=== PATIENT | male | born 2005 | race Caucasian/White ===

== ENCOUNTER 2025-03-03 13:09 | Outpatient (AMB) | payer OTHER, SELFPAY ==
--- NOTE | 2025-03-03 13:13 | MHC.PC.OV ---
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: No Accompanied by: Self / Same As Patient Allergies peanut (PEANUT) Allergy (Unknown, Unverified 03/03/25 13:33) ANAPHYLAXIS Sulfa (Sulfonamide Antibiotics) (SULFA (SULFONAMIDE ANTIBIOTICS)) Allergy (Unknown, Unverified 03/03/25 13:33) RASH tree nut (TREE NUT) Allergy (Unknown, Unverified 03/03/25 13:33) ANAPHYLAXIS sulfa Allergy (Mild, Uncoded 03/03/25 13:33) Unknown Medication List - Last Reconciled 03/03/25 by DEYSI Brody albuterol sulfate 90 mcg/actuation 2 puffs inhalation Q4H PRN epinephrine 0.3 mg (0.3 mL) IM Q10M PRN montelukast (Singulair) 10 mg PO BEDTIME Tobacco use date assessed: 03/03/25 Dental Screening Dental Screen Date: 03/03/25 Did you have a dental visit in the last 12 months?: Yes Did you have a dental problem in the last 6 months where you did not have access to dental care?: No Was dental information given to patient?: No HPI HPI Comments History of Present Illness Details 19-year-old male with history of mild intermittent asthma presenting to the office today for management of chronic conditions and to establish care. 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 Looking to transfer to a 4 year college. He does tell me that he drinks about 6 beers on Saturday and Saturday night but otherwise consumes no alcohol. Reports smoking cigarettes and marijuana about once monthly. Otherwise no drug use 6 beers fri sat. Asthma- previously using Flovent/Pulmicort but has been out of this for some time. Does use Singulair. Reports needing his albuterol inhaler only as needed about every 3-4 weeks. Has never had an exacerbation requiring prednisone or any hospitalizations. He reports he does experience flares with allergies as well as heavy exertion. Allergic rhinitis- uses fexofenadine Allergy to peanuts and tree nuts- has epipen has never needed to use. Concerns: None Health maintenance: Colonoscopies to started age 43 ROS: General: No fevers, malaise, unintentional weight loss HEENT: No blurred vision, diplopia. No sore throat, nasal congestion, rhinorrhea, sinus pain, ear pain Cardiovascular: No chest pain, palpitations, or leg edema Respiratory: No shortness of breath, wheezing, cough GI: No abdominal pain, nausea, vomiting, diarrhea, constipation, melena, hematochezia : No dysuria, hematuria, increased urinary frequency, decreased urinary output MSK: No myalgia, back pain Neuro: No headaches, weakness, paresthesias Skin: No rashes or lesions EXAM: Constitutional - Awake and Alert, No apparent distress Eyes - PERRL Cardiovascular - S1S2, RRR, No edema Respiratory - Normal lung expansion, Normal respiratory effort, No respiratory distress, CTA bilaterally Extremities - no calf tenderness bilaterally, no swelling Skin - Warm/Dry Neurological - Alert & oriented x3 Psychological - Appropriate affect [facility] Medical History (Updated 03/03/25 @ 13:39 by DEYSI Brody) Alcohol consumption binge drinking Tree nut allergy Peanut allergy Allergic rhinitis Asthma Surgical History (Updated 03/03/25 @ 13:24 by DEYSI Brody) No pertinent past surgical history Family History (Updated 03/03/25 @ 13:24 by DEYSI Brody) Paternal Grandfather Prostate cancer Paternal Grandmother Alzheimer dementia Maternal Grandmother Alzheimer dementia Social History Housing: Apartment Patient Tobacco Use Status: Current someday Tobacco user (occasionally) e-Cigarette/Vaping Use: Currently Using (occasionally) service: No Current occupational status: employed Cognitive needs: No Hearing needs: No Vision needs: No Physical exam (Primary Care) Tobacco/Smoking Status: Tobacco use Status Tobacco use date assessed 03/03/25 03/03/25 13:35 Patient Tobacco Use Status Current someday Tobacco ( 03/03/25 13:35 occasionally) e-Cigarette/Vaping Use Currently Using ( 03/03/25 13:35 occasionally) Coding Level of Care Code New Pt Level 3 (92122) Diagnoses Asthma J45.909 Allergic rhinitis J30.9 Alcohol consumption binge drinking F10.10 Assessment & Plan Assessment & Plan (1) Asthma: Code(s): J45.909 - Unspecified asthma, uncomplicated Category: Medical Plan: Stable. Can remain off of maintenance inhaler. Continue Singulair as well as albuterol inhaler on a as needed for shortness breath and wheezing (2) Allergic rhinitis: Code(s): J30.9 - Allergic rhinitis, unspecified Category: Medical Plan: Continue fexofenadine. Can also use inhaled corticosteroid as needed. Avoid triggers (3) Alcohol consumption binge drinking: Code(s): F10.10 - Alcohol abuse, uncomplicated Category: Social Hx Plan: Counseled on healthy alcohol use. Also consult against smoking or vaping any substances. Plan Follow-up for annual physical exam. Labs ordered Orders: Orders Basic Metabolic Panel Today F10.10 - Alcohol abuse, uncomplicated, J30.9 - Allergic rhinitis, unspecified, J45.909 - Unspecified asthma, uncomplicated, Z13.220 - Encounter for screening for lipoid disorders Liver Panel Today F10.10 - Alcohol abuse, uncomplicated, J30.9 - Allergic rhinitis, unspecified, J45.909 - Unspecified asthma, uncomplicated, Z13.220 - Encounter for screening for lipoid disorders Lipid Panel Today F10.10 - Alcohol abuse, uncomplicated, J30.9 - Allergic rhinitis, unspecified, J45.909 - Unspecified asthma, uncomplicated, Z13.220 - Encounter for screening for lipoid disorders Medications: New albuterol sulfate 90 mcg/actuation 2 puffs inhalation Q4H PRN 8.5 grams 1RF shortness of breath or wheezing montelukast (Singulair) 10 mg PO BEDTIME 90 tabs 1RF epinephrine for 2 doses 0.3 mg (0.3 mL) IM Q10M PRN 2 ea 1RF anaphylaxis Z91.010 - Allergy to peanuts
[2025-03-03 13:34] VITALS: BP 120/80; PULSE 50; RESP 14; TEMP 36.6; O2SAT 98; BMI 25.3
--- OUTSIDE RECORDS SUMMARY | 2025-03-03 13:49 | XMS_ITS | Clinical Summary ---
Author Organization [facility] Address [address] [place] [id number] Phone Care Team Providers Care Ambulatory Care Nurse Name Role Phone Unavailable Primary Care Provider Unavailabl e Allergies Active Allergy Reactions Criticality Noted Date Comments Peanuts (Food) High 06/14/2017 Sulfa Antibiotics 06/14/2017 Tree Nuts (Food) High 06/14/2017 Medications fluocinonide 0.05 % cream FLUOCINONIDE; apply by topical route 2 times every day to the affected area(s); 0.05 %; 06/07/2016; Active 6 Active albuterol HFA (ProAir HFA) 108 (90 Base) MCG/ACT inhalerIndication s:Mild persistent asthma without complication Inhale 2 puffs every 4 (four) hours as needed for wheezing. 1 Units 2 Active fexofenadine 180 MG tabletIndications :Seasonal allergic rhinitis due to pollen Take 1 tablet (180 mg total) by mouth daily. 90 tablet 2 3 Active EPINEPHrine (EpiPen 2-Sravan) 0.3 MG/0.3ML injection syringeIndication s:Nut allergy 1 syringe Once prn anaphylaxis; go to ER if used 2 each 2 3 Active montelukast 10 MG tabletIndications :Mild persistent asthma without complication TAKE 1 TABLET BY MOUTH EVERY DAY AT NIGHT 90 tablet 1 3 Active albuterol HFA 108 (90 Base) MCG/ACT inhalerIndication s:Mild persistent asthma without complication INHALE 2 PUFFS BY MOUTH EVERY 4 HOURS NEEDED FOR WHEEZING OR SHORTNESS OF BREATH 18 g 3 Active budesonide (Pulmicort Flexhaler) 180 MCG/ACT inhalerIndication s:Moderate persistent asthma without complication Inhale 1 puff 2 (two) times a day. Rinse mouth with water after use, do not swallow. 1 each 5 3 Active Active Problems Problem Noted Date Diagnosed Date COVID-19 vaccine dose declined 01/18/2023 Assessment & Plan (01/18/2023 11:48 AM EDT): Counseled to get vaccinated to prevent serious illness Marijuana use 01/18/2023 Overview (01/18/2023): Was daily, has cut back Assessment & Plan (01/18/2023 5:04 PM EDT): Counseled re marijuana risks, cutting back, has on own. 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 Use only foam pillows 3. Wash all bed linens, including bedspread, weekly 4. Avoid floor to ceiling heavy curtains. 5. Wash any curtains or blinds there 6. Try to avoid wall to wall carpeting 7. Vacuum your home weekly with a HEPA filter 8. No cats, or dogs in the room. Best to Have no cats at all in the home ): 9. Use clean air conditioners; for whole house Ac, make sure ducts are clean 10. Consider air purifiers (Emily makes Good reasonably priced models) 11. Have child wash hands and face a lot 12. Baking soda compresses work great on Itchy eyes. Assessment & Plan (10/14/2021 3:43 PM EDT): Continue present meds. 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 , and Sulfa meds; has Epi Pens, with oils, gets rash, never eats them. Assessment & Plan (01/18/2023 5:02 PM EDT): Epi pen refilled. Allergy plan discussed Assessment & Plan (09/22/2021 2:31 PM EDT): Has epi pen Assessment & Plan (09/19/2020 10:38 AM EDT): Refilled epi-pen Recommend follow up with clinical administrator Assessment & Plan (06/18/2019 2:36 PM EST): Needs refill on Epi-pen No longer seeing clinical administrator Discussed seeing clinical administrator for desens to peanuts Moderate persistent asthma without complication 09/07/2011 Overview (10/13/2021): Started Aug 2011; uses flovent 110 daily all year with increase when ill; may use less in summer, also on Singulair 10 mg Asthma not in good control (09/26) wheezing today, needs to get in control to sign [employer] sports form, needs to start taking flovent again. 10/27: now doing well. Assessment & Plan (10/14/2021 3:43 PM EDT): Continue present asthma plan. Call with problems. Signed sports form Assessment & Plan (09/23/2021 5:09 PM EDT): Counseled, asthma discussed Assessment & Plan (09/19/2020 10:38 AM EDT): No longer on flovent Uses singulair nightly Uses albuterol occas with sport - refilled today Assessment & Plan (06/18/2019 2:39 PM EST): Singulair 10 mg Use flovent off & on, just restarted ([facility]) due to increase albuterol need Assessment & Plan (06/17/2018 2:04 PM EST): Pretty good compliance with Flovent. Most recent flair was last week. Triggers are cold, URI, allergens. Intrinsic eczema 11/15/2009 Overview (06/14/2017): Rare; uses creams Assessment & Plan (01/18/2023 11:31 AM EDT): Use fluocinonide. Assessment & Plan (09/23/2021 5:09 PM EDT): Ok today Assessment & Plan (09/19/2020 9:34 AM EDT): No issues No meds Seasonal allergic rhinitis due to pollen 010 Overview (09/23/2021): Uses claritin prn; used to see clinical administrator 09/26 not in good control. Assessment & Plan (10/13/2021 3:26 PM EDT): Try stopping claritin, continuing singulair and zachariah. In the summer, try stopping the flonase, and singulair but restart if You have symptoms. Assessment & Plan (09/22/2021 2:43 PM EDT): I would switch to zyrtec in the am, stop loratidine, take zachariah at night. Keep his/her bedroom dust free: 1. Wash and dry any stuffed animals or Give them a vacation in sealed plastic bags for a week 2. Use only foam pillows 3. Wash all bed linens, including bedspread, weekly 4. Avoid floor to ceiling heavy curtains. 5. Wash any curtains or blinds there 6. Try to avoid wall to wall carpeting 7. Vacuum your home weekly with a HEPA filter 8. No cats, or dogs in the room. Best to Have no cats at all in the home ): 9. Use clean air conditioners; for whole house Ac, make sure ducts are clean 10. Consider air purifiers (Emily makes Good reasonably priced models) 11. Have child wash hands and face a lot 12. Baking soda compresses work great on Itchy eyes. Assessment & Plan (12/09/2020 6:25 PM EDT): 12/09/2020 (age 15yr 7mo): significant increase in nasal congestion with maxillary tenderness and green nasal discharge. - continue with the allergy care recommended by Dr. Garnett at the last visit - resume the usual care of pseudphed and tylenol that usually works for these episodes. - could try using a neti pot. If Giorgio's symptoms do not seem to improve, I would be glad to call in antibiotics in 2 days when I'm in the office. I would consider augmentin. Assessment & Plan (09/19/2020 10:38 AM EDT): claritin prn Singulair nightly recommend adding flonase daily Recommend following up with clinical administrator Assessment & Plan (06/18/2019 2:35 PM EST): claritin & singulair daily Recommend trying flonase for nasal congestion Resolved Problems Problem Noted Date Diagnosed Date Resolved Date Sprain of calcaneofibular li gament of right ankle 09/22/2021 10/13/2021 Assessment & Plan (10/13/2021 3:26 PM EDT): Better now. Refused influenza vaccine 06/18/2019 Overview (06/18/2019): Declined 06/18/19 Assessment & Plan (06/18/2019 2:35 PM EST): Discussed & info given on how serious a flu season can be. Influenza can cause serious illness in children. Every year Influenza results in significant numbers of hospitalizations & deaths in the community. Immunizing children not only protects them but also the larger community since children often spread the influenza within a community. Family and /or patient still refused vaccine today Family will return for nurse visit if wishing vaccine Immunizations Immunization Administration Dates Next Due DTaP 5 09/10/2007, 5,2003,09/14,2003 Hep A, ped/adol 06/14/2017,06/07/2016 Hep B, ped/adol 02/18/2004,2003,2003 Hib (HbOC) 08/14/2004 Hib (PRP-T) 2003,2003,2003 IPV 09/10/2007, 4,2003,07/13 Influenza, injectable, quadr ivalent, preservative free 06/29/2020 MMR 05/12/2004 MMRV 09/10/2007 Meningococcal Conj (Menactra) MCV4P 06/18/2019,1 07/19/2014 Pneumococcal Conjugate 08/14/2004,2003,2003,07/13 Tdap 05/19/2015 Varicella 05/12/2004 Family History Medical History Relation Name Comments Asthma Brother Asthma Father Giorgi No Known Problems Mother Carol Heart attack Paternal Grandfather Relation Name Status Comments Brother Father Giorgi Mother Carol Alive Paternal Grandfather Social History Tobacco Use Types Packs/Day Years Used Date Smoking Tobacco: Never Smokeless Tobacco: Never Comments:Never smoker Alcohol Use Standard Drinks/Week Comments Yes 0 (1 standard drink = 0.6 oz pure alcohol) 3-5 beers or cider at a sitting, twice a month Hunger/Food Answer Date Recorded In the last 12 months, did y ou or your family ever eat less than you felt you should because there wasn't enough money for food? No 01/18/2023 Stable Housing Answer Date Recorded Are you worried that in the next 2 months you may not have stable housing? No 01/18/2023 Transportation Concerns Answer Date Rec orded In the last 12 months, have you or your family ever had to go without healthcare because you didn't have a way to get there? No 01/18/2023 Hazards in Home Answer Date Recorded Think about the place you li ve. Do you have problems with any of the following? Pests (mice or roaches), mold, no/not working smoke detectors, water leaks, no window guards. No 2022 Financing Utilities Answer Date Recorde d In the last 12 months, has t he electric, gas, oil, or water company threatened to shut off your services in your home? No 01/18/2023 Safety at Home Answer Date Recorded Are you or your family worried about feeling saf e in your home? No 01/18/2023 Outside Support Answer Date Recorded Do you feel that you need mo re support from other people or programs to help you care for yourself or your family? No 01/18/2023 Understanding Health Concerns Answer Da te Recorded Do you need help understandi ng your or your child's healthcare needs (diagnosis, medications, plan, etc.)? No 01/18/2023 Financing Health Concerns Answer Date R ecorded In the last 12 months, was t here a time when your child needed to see a doctor or get medications or supplies but could not because of cost? No 01/18/2023 Missing School or Work Answer Date Zev rded Did you or your child miss s chool or work because of a health problem that could have been avoided? No 01/18/2023 Sex and Gender Information Value Date Recorded Sex Assigned at Not on file Legal Sex Male 5:15 PM EDT Gender Identity Not on file Sexual Orientation Straight 01/18/2023 11 :33 AM EDT Last Filed Vital Signs Vital Sign Reading Time Taken Comments Blood Pressure 113/73 01/18/2023 11:05 AM EDT Pulse 52 01/18/2023 11:05 AM EDT Temperature 36.2 C (97.2 F) 01/18/2023 11:05 AM EDT Respiratory Rate - - Oxygen Saturation 96% 04/21/2013 12:00 AM EDT Inhaled Oxygen Concentration - - Weight 71.3 kg (157 lb 2 oz) 01/18/2023 11:05 AM EDT Height 177.8 cm (5' 10 ) 01/18/2023 11:05 AM EDT Body Mass Index 22.55 01/18/2023 11:05 AM EDT Plan of Treatment Health Maintenance Due Date Last Done Comments HPV Vaccines (1 - Male 3-dos e series) 2018 Men B Vaccine (1 of 2 - Standard) 2019 COVID-19 Vaccine (3 - 2023-2 5 season) 2024 11/05/2020, 10/15/2020 Influenza Vaccines (#1) 2025 06/29/2020 DTaP,Tdap,and Td Vaccines (7 - Td or Tdap) 05/19/2025 05/19/2015, 09/10/2007, 11/13/2004, Additional history exists Hepatitis B Vaccines Completed 02/18/2004, 2003, 2003 HIB Vaccines Completed 08/14/2004, 11/06, 2003, Additional history exists Pneumococcal Vaccine Completed 08/14/2004, 02/18/2004, 2003, Additional history exists IPV Vaccines Completed 09/10/2007, 02/05, 2003, Additional history exists MMR Vaccines Completed 09/10/2007, 05/12/2004 Varicella Vaccines Completed 09/10/2007, 05/12/2004 Hepatitis A Vaccines Completed 06/14/2017, 06/07/20 16 Meningococcal Vaccine Completed 06/18/2019, 015 Insurance [facility]
--- OUTSIDE RECORDS SUMMARY | 2025-03-03 13:49 | XMS_ITS | Encounter Summary ---
Author Organization [facility] Address [address] [place] [id number] Phone Care Team Providers Care Radar Air Traffic Controller Name Role Phone Evangelist Ortiz MD Primary Care Provider Rito worthington Reason for Visit * Reason Comments Med Refill Encounter Details Date Type Department Care Team (Late st Contact Info) Description 02/03/2020 Refill [facility] [place] [address] [place] [address] Alexi Mckeon MD [address] [place] [address] Mild persistent asthma without complication Social History Tobacco Use Types Packs/Day Years Used Date Smoking Tobacco: Never Smokeless Tobacco: Never Comments:Never smoker Alcohol Use Standard Drinks/Week Comments No 0 (1 standard drink = 0.6 oz pur e alcohol) Hunger/Food Answer Date Recorded No 04/20/2019 Stable Housing Answer Date Recorded No 07/09/2019 Transportation Concerns Answer Date Rec orded No 04/20/2019 Hazards in Home Answer Date Recorded No 04/20/2019 Financing Utilities Answer Date Recorde d No 04/20/2019 Safety at Home Answer Date Recorded No 04/20/2019 Outside Support Answer Date Recorded No 04/20/2019 Understanding Health Concerns Answer Da te Recorded No 04/20/2019 Financing Health Concerns Answer Date R ecorded No 04/20/2019 Missing School or Work Answer Date Zev rded No 04/20/2019 Sex and Gender Information Value Date Recorded Sex Assigned at Not on file Legal Sex Male 5:15 PM EDT Gender Identity Not on file Sexual Orientation Straight 01/18/2023 11 :33 AM EDT documented as of this encounter Miscellaneous Notes * Telephone Encounter - Sue Cisse LPN - 02/03/2020 9:44 AM EDT Phar request for Montelukast 10mg. Last pe 06/2019 documented in this encounter Plan of Treatment Not on file documented as of this encounter Visit Diagnoses Diagnosis Mild persistent asthma without complication documented in this encounter Care Teams Radar Air Traffic Controller Relationship Specialty Start Date End Date Evangelist Ortiz MD PCP - General Pediatrics 08/06/22 05/13/24 documented as of this encounter
--- OUTSIDE RECORDS SUMMARY | 2025-03-03 13:49 | XMS_ITS | Encounter Summary ---
Author Organization [facility] Address [address] [place] [phone] Phone Care Team Providers Care Test Center Manager Name Role Phone Evangelist Ortiz MD Primary Care Provider Rito worthington Reason for Visit * Reason Comments Med Refill Encounter Details Date Type Department Care Team ([facility] st Contact Info) Description 05/18/2023 Refill [facility] [address] [address] Yuridia Garnett MD [address] [place] [id number] Mild persistent asthma without complication Social History [...] encounter Miscellaneous Notes * Telephone Encounter - Liat Lei LPN - 05/19/2023 11:19 AM EST Just ordered 04/24/23 documented in this encounter Plan of Treatment Not on file documented as of this encounter Visit Diagnoses Diagnosis Mild persistent asthma without complication documented in this encounter Care Teams Test Center Manager Relationship Specialty Start Date End Date Evangelist Ortiz MD PCP - General Pediatrics 08/06/22 05/13/24 documented as of this encounter
--- OUTSIDE RECORDS SUMMARY | 2025-03-03 13:49 | XMS_ITS | Encounter Summary ---
Author Organization [facility] Address [address] [place] [phone] Phone Care Team Providers Care Blockers Skiver Name Role Phone Evangelist Ortiz MD Primary Care Provider Rito worthington Encounter Details Date Type Department Care Team (Late st Contact Info) Description 10/28/2009 Documentation [facility] [place] Family Medicine [address] [place] [address] Family Medicine, Physician [facility] [address] Social History Tobacco Use Types Packs/Day Years Used Date Smoking Tobacco: Never Assessed Sex and Gender Information Value Date Recorded Sex Assigned at Not on file Legal Sex Male 5:15 PM EDT Gender Identity Not on file Sexual Orientation Straight 01/18/2023 11 :33 AM EDT documented as of this encounter Plan of Treatment Not on file documented as of this encounter Visit Diagnoses Not on filedocumented in this encounter Care Teams Blockers Skiver Relationship Specialty Start Date End Date Evangelist Ortiz MD PCP - General Pediatrics 08/06/22 05/13/24 documented as of this encounter
--- OUTSIDE RECORDS SUMMARY | 2025-03-03 13:49 | XMS_ITS | Encounter Summary ---
Author Organization [facility] Address [address] [place] [phone] Phone Care Team Providers Care Director Of Research And Development Name Role Phone Evangelist Ortiz MD Primary Care Provider Rito worthington Encounter Details Date Type Department Care Team (Late st Contact Info) Description 02/21/2017 Conversion Encounter [facility] [place] - [address] [address] Social History Tobacco Use Types Packs/Day Years Used Date Smoking Tobacco: Never Comments:Never smoker Sex and Gender Information Value Date Recorded Sex Assigned at Not on file Legal Sex Male 5:15 PM EDT Gender Identity Not on file Sexual Orientation Straight 01/18/2023 11 :33 AM EDT documented as of this encounter Plan of Treatment Not on file documented as of this encounter Visit Diagnoses Not on filedocumented in this encounter Care Teams Director Of Research And Development Relationship Specialty Start Date End Date Evangelist Ortiz MD PCP - General Pediatrics 08/06/22 05/13/24 documented as of this encounter
--- OUTSIDE RECORDS SUMMARY | 2025-03-03 13:49 | XMS_ITS | Encounter Summary ---
Author Organization [facility] Address [address] [place] [id number] Phone Care Team Providers Care Personal Care Assistant Name Role Phone Evangelist Ortiz MD Primary Care Provider Rito worthington Reason for Visit * Reason Comments Med Refill Encounter Details Date Type Department Care Team (Late st Contact Info) Description 05/11/2019 Refill [facility] [address] [place] [address] Salud Aj MD [address] [place] [id number] Mild persistent asthma without complication Social History Tobacco Use Types Packs/Day Years Used Date Smoking Tobacco: Never Smokeless Tobacco: Never Comments:Never smoker Alcohol Use Standard Drinks/Week Comments No 0 (1 standard drink = 0.6 oz pur e alcohol) Hunger/Food Answer Date Recorded No 04/20/2019 Stable Housing Answer Date Recorded 0 04/20/2019 Transportation Concerns Answer Date Rec orded No [...] encounter Miscellaneous Notes * Telephone Encounter - Janey Cantrell MD - 05/11/2019 11:59 AM EST Script sent. PPP * Telephone Encounter - Liat Lei LPN - 05/11/2019 10:21 AM EST Pt of PC- Refill request for montelukast. Last PE 06/17/18, has pending PE aon 06/18/19/[facility] documented in this encounter Plan of Treatment Not on file documented as of this encounter Visit Diagnoses Diagnosis Mild persistent asthma without complication documented in this encounter Care Teams Personal Care Assistant Relationship Specialty Start Date End Date Evangelist Ortiz MD PCP - General Pediatrics 08/06/22 05/13/24 documented as of this encounter
== END 2025-03-03 13:42 | disposition home or self-care (01) ==
PROVIDERS: Visit Provider Physician Assistant
DX: J45.909 Unspecified asthma, uncomplicated (principal); J30.9 Allergic rhinitis, unspecified; F10.10 Alcohol abuse, uncomplicated